=== PATIENT | male | born 1950 | race Caucasian/White ===

== ENCOUNTER 2017-12-13 15:28 | Observation (INO) | payer MEDICARE ==
[2017-12-13] MEDS ORDERED: hydrALAZINE 20 MG/ML VIAL ONE (15:51)
[2017-12-13 17:36] VITALS: BMI 24.9
[2017-12-13] MEDS ORDERED: Ondansetron HCl/PF 4 MG/2 ML Vial IVP PRN (20:45)
[2017-12-13] MEDS ORDERED: hydrALAZINE 20 MG/ML VIAL SLOW IVP PRN (20:45)
[2017-12-13] MEDS ORDERED: Labetalol HCl 100 MG/20 ML VIAL SLOW IVP PRN (20:45)
[2017-12-13] MEDS ORDERED: Acetaminophen 500 MG TAB PO PRN (20:45)
[2017-12-13] MEDS ORDERED: Ondansetron ODT 4 MG TAB PO PRN (20:45)
[2017-12-13] MEDS ORDERED: diphenhydrAMINE 25 MG CAP PO PRN (20:45)
[2017-12-13] MEDS ORDERED: Atorvastatin Calcium 40 MG TAB PO SCH (21:00)
[2017-12-13] MEDS: Famotidine 20 MG TAB PO SCH (22:01)
[2017-12-14 04:51] LABS: Anion Gap 12 mmol/L (10-20); BUN (Urea Nitrogen) 12 mg/dL (8.4-25.7); Calc. Creatinine Clearance 97 mL/min (70-130); Calcium 9.5 mg/dL (7.8-10.44); Carbon Dioxide 23 mmol/L (23-31); Chloride 102 mmol/L (98-107); Cholesterol 167 mg/dl (< 200 Desired); Estimated GFR-MDRD Greater than 90; Glucose 89 mg/dL (80-115); HDL Cholesterol 55 mg/dL (>60 Neg Risk); LDL Cholesterol, Calculated 96 mg/dL; Potassium 4.1 mmol/L (3.5-5.1); Sodium 133 mmol/L (136-145); Triglycerides 79 mg/dL (Less than 150)
--- NOTE | 2017-12-14 04:56 | HP ---
DATE OF ADMISSION: 12/13/2017 PRIMARY CARE PROVIDER: Dr. Jair Perez. CHIEF COMPLAINT: Left hand weakness and facial droop. HISTORY OF PRESENT ILLNESS: This is a 67-year-old male who presents to [facility] and transferred from [place] [facility] where patient initially presented with left hand weakness, left facial droop, left hand tingling and some dysarthri a. 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 The patient continued to drop the hands of tools and was unable to hold him in his left hardy d. The patient's son was working with him at that time and noted left facial droop and became concer nirmala for a possible stroke. The patient was evaluated in [place] [facility], undergoing in itial CT imaging, showing lacunar infarcts of the left thalamic region of indeterminate age. The pat ient was also noted with chronic small vessel ischemic changes and cerebral volume loss. The patient 's symptoms resolved rapidly by the time of evaluation in the emergency room. The patient states teofilo t initially began around 11:00 a.m. on 12/13/2017. The patient does admit to taking daily, aspirin 8 1 mg after taking 325 mg for approximately 16 years until 2 years prior to this evaluation. The bhanu ent admits to self discontinuing lisinopril which was prescribed 10 mg daily due to the patient's bel ief that this was causing lower extremity weakness. The patient denies any prior history of similar symptoms, but does state that approximately 4 weeks prior to this evaluation, he noticed visual distu rbance on both eyes, the images in his visual field appeared to have burned edges in the periphery. The patient states this lasted for several minutes, then resolved spontaneously. The patient denies any recent trauma, injury, fever, chills, or exposure history. [facility] use over [facility] years and was recently diagnosed with chronic obstructive pulmonary disease. PAST MEDICAL HISTORY: 1. Chronic obstructive pulmonary disease. 2. Tobacco abuse greater than 50 years. 3. Hypertension, noncompliant with medications. 4. Benign prosthetic hyperplasia. 5. Congenital agenesis of the right kidney. PAST SURGICAL HISTORY: Status post inguinal hernia repair. CURRENT MEDICATIONS: 1. Aspirin 81 mg 1 tab p.o. daily. 2. Lisinopril 10 mg 1 tab p.o. daily. 3. Anoro Ellipta one inhalation daily. ALLERGIES: No known drug allergies. FAMILY HISTORY: No inheritable diseases per patient report. SOCIAL HISTORY: Patient is , accompanied by his spouse in the hospital. Resides in [place], [place]. 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 Smokes up to 1-2 packs of cigarettes greater than 50 years. Alcoh ol use including beer. No illicit drug use. REVIEW OF SYSTEMS: The following complete review of systems was negative, unless otherwise mentioned in the HPI or below: Constitutional: Weight loss or gain, ability to conduct usual activities. Sk in: Rash, itching. Eyes: Double vision, pain. ENT/Mouth: Nose bleeding, neck stiffness, pain, te nderness. Cardiovascular: Palpitations, dyspnea on exertion, orthopnea. Respiratory: Shortness of breath, wheezing, cough, hemoptysis, fever or night sweats. Gastrointestinal: Poor appetite, abdom inal pain, heartburn, nausea, vomiting, constipation, or diarrhea. Genitourinary: Urgency, frequenc y, dysuria, nocturia. Musculoskeletal: Pain, swelling. Neurologic/Psychiatric: Anxiety, depressio n. Allergy/Immunologic: Skin rash, bleeding tendency. PHYSICAL EXAMINATION: VITAL SIGNS: On admission, blood pressure 183/91, pulse 72, respiratory rate 18, temperature 97.4 de grees Fahrenheit, O2 saturation 99% on room air. GENERAL APPEARANCE: This is a 67-year-old male, alert and oriented x3, pleasant, conversan t, in no acute distress. HEENT: Pupils are equal, round, and reactive to light and accommodation. Extraocular muscles are in tact. No scleral icterus, no conjunctival injection. Nares patent. OP is clear. Teeth in poor rep air. NECK: Supple. No cervical adenopathy, no thyromegaly, no carotid bruits, no JVD appreciated. Cervi adilson spine with full active and passive range of motion. No meningeal signs appreciated. CHEST: Diminished breath sounds bilaterally with prolonged expiratory phase and occasional wheeze. CARDIOVASCULAR: S1, S2 with distant heart sounds. No murmur, rub, or gallop appreciated. ABDOMEN: Rounded, soft, nontender, nondistended. Bowel sounds are positive in all four quadrants. There is no hepatosplenomegaly, no abdominal bruits, no rebound or guarding appreciated. EXTREMITIES: Warm and dry with fair turgor. No clubbing, cyanosis, or asymmetric edema appreciated. Pulses palpable distally at the dorsalis pedis, posterior tibial, and popliteal arteries bilaterall y. Capillary refill less than 2 seconds. NEUROLOGIC: Left facial asymmetry noted, mild. Rest of the cranial nerves 2 through 12 are grossly intact. Right hand dominant. No focal extremity weakness appreciated. Patient follows all commands appropriately. Alert and oriented x3. No ataxia. PERTINENT LABORATORY AND X-RAY FINDINGS: Complete metabolic profile within normal limits. CBC withi n normal limits. CT of the brain without contrast dated 12/13/2017, showed lacunar infarction of the left thalamus indeterminate age. Chronic small vessel ischemic changes with associated cerebral vol ume loss. Vascular calcifications in the carotid siphons and distal right vertebral artery. EKG black ed 12/13/2017 by my interpretation, shows sinus mechanism with heart rates in the 60s. Normal R-wave progression noted in the precordial leads. Normal axis. No acute ST-T wave changes appreciated. ASSESSMENT AND PLAN: 1. Transient ischemic attack. The patient will be observed on the Stroke Unit. We will continue Kahubnd stroke protocol. Obtain 2D transthoracic echocardiogram and carotid Doppler study. We will ho ld MRI imaging as this will not change medical therapy or recommendations for management. Continue a spirin 325 mg daily. Check fasting lipid profile in the a.m. 2. Hypertension, labile and uncontrolled. Resume lisinopril 10 mg p.o. daily. Hydralazine and labe talol p.r.n. per stroke protocol. Continue blood pressure monitoring and titrate antihypertensive re gimen on an ongoing basis. 3. Tobacco abuse. We will offer smoking cessation resources prior to discharge. Transdermal nicoti ne 21 mg daily. 4. Chronic obstructive pulmonary disease. No current exacerbation. Continue Anoro Ellipta 1 inhala tion daily. DuoNeb q.4 hours p.r.n. 5. Prophylaxis. Sequential compression devices while in bed. Pepcid 20 mg p.o. b.i.d. 6. Code status is FULL. Surrogate medical decision maker is patient's spouse.
[2017-12-14 04:58] LABS: Band 3 % (5-11); Eosinophils 7 % (0-10); Hemoglobin 15.8 g/dL (14.0-18.0); Lymphocytes 20 % (21-51); MDiff Complete? YES; Mean Corpuscular HGB CONC 34.8 g/dL (32.0-36.0); Mean Corpuscular Hemoglobin 30.3 pg (27.0-31.0); Mean Corpuscular Volume 87.1 fl (80.0-94.0); Mean Platelet Volume 6.8 fL (7.4-10.4); Monocytes 5 % (0-10); Neutrophil 65 % (42-75); Platelet Count 160 thou/uL (130-400); RBC Distribution Width 13.3 % (11.5-14.5); Red Blood Cell (RBC) Count 5.21 mill/uL (4.70-6.10)
[2017-12-14] MEDS: Famotidine 20 MG TAB PO SCH (08:45)
[2017-12-14] MEDS ORDERED: Nicotine 21 MG PATCH TD SCH (09:00)
[2017-12-14] MEDS ORDERED: Lisinopril 10 MG TAB PO SCH (09:00)
[2017-12-14] MEDS ORDERED: Aspirin 325 mg Enteric Coated Tablet PO SCH (09:00)
--- NOTE | 2017-12-14 10:20 | ULT ---
BILATERAL CAROTID DUPLEX ULTRASOUND: HISTORY: TIA. TECHNIQUE: Pelletier-scale, color-flow, and spectral Doppler imaging of the extracranial carotid artery system is per formed bilaterally. FINDINGS: There is plaque formation on either side. The peak systolic velocity in the right ICA measures 77 cm per second with an end-diastolic velocity of 12 cm per second and a systolic ratio of 1.70. The peak systolic velocity in the left ICA measures 111 cm per second with an end-diastolic velocity of 27 cm per second and a systolic ratio of 2.11. Flow in both vertebral arteries remains antegrade. IMPRESSION: No evidence of hemodynamically significant stenosis. POS: [facility]
[2017-12-14] MEDS ORDERED: Metoprolol Tartrate 25 MG TAB PO SCH ×2 (15:00→21:00)
[2017-12-14 15:46] VITALS: BP 142/86; TEMP 97.8
--- NOTE | 2017-12-15 01:43 | DIS ---
DATE OF ADMISSION: 12/13/2017 DATE OF DISCHARGE: 12/14/2017 DISCHARGE DIAGNOSES: 1. Transient ischemic attack, resolved. 2. Hypertension, labile. 3. Hyperlipidemia. 4. Tobacco abuse. 5. Chronic obstructive pulmonary disease. CONSULTATIONS: None. PERTINENT LABORATORY DATA AND X-RAY FINDINGS: Sodium 133, total cholesterol 167, triglycerides 79, H DL 55, LDL 96. CBC within normal limits. CT of the brain without contrast dated 12/13/2017 showed l acunar infarct of the left thalamus indeterminate age. Chronic ischemic white matter changes noted. Carotid Doppler study dated 12/14/2017 showed no evidence of hemodynamically significant stenosis. A 2D transthoracic echocardiogram dated 12/14/2017 pending. HOSPITAL COURSE: Patient was observed on the stroke unit after initially presenting with left hand w eakness and left facial droop. Patient underwent general stroke protocol after concern for transient ischemic attack. Patient was placed on aspirin 325 mg daily, and underwent carotid Doppler study sh owing no evidence of hemodynamically significant stenosis. CT imaging of the brain at the time of ad mission showed lacunar infarct of the left thalamus of indeterminate age. Patient's symptoms had res olved by the time of evaluation in the emergency room, and patient remained clinically stable through out the remainder of the hospital course. Patient was noted with labile hypertension with the additi on of metoprolol 12.5 mg b.i.d. to current regimen of lisinopril 10 mg daily. Patient likely will ne ed additional titration of his antihypertensive regimen on an ongoing basis after discharge. Patient was counseled regarding the need for tobacco cessation and placed on transdermal nicotine. Overall, patient did remain clinically stable throughout the hospital course, tolerating regular oral intake, ambulating without assistance or difficulty. I have examined the patient's at the time of discharge and discussed pertinent laboratory and radiographic findings as well as discharge instructions. Mary queen verbalized understanding and agreement and will discharge home on 12/14/2017. DISCHARGE MEDICATIONS: 1. Enteric-coated aspirin 325 mg p.o. daily. 2. Lipitor 40 mg p.o. at bedtime. 3. Lisinopril 10 mg p.o. daily. 4. Metoprolol 12.5 mg p.o. b.i.d. 5. Nicoderm CQ 21 mg transdermally daily. 6. Anoro Ellipta 62.5 mcg/25 mcg one inhalation daily. FOLLOWUP: Patient will follow up with her primary care provider, Dr. Jair Perez within 7 days of d ischarge. CONDITION ON DISCHARGE: Stable. ACTIVITY: Ad-dede. DIET: Heart healthy. CODE STATUS: FULL. DISPOSITION: Home on 12/14/2017.
== END 2017-12-14 16:55 | disposition home or self-care (01) ==
LOC: ERS 15:28 → 2SE 16:13
PROVIDERS: ADMIT Family Medicine; ATTEND Family Medicine
DX: G45.9 Transient cerebral ischemic attack, unspecified (principal); I10 Essential (primary) hypertension; E78.5 Hyperlipidemia, unspecified; F17.210 Nicotine dependence, cigarettes, uncomplicated; J44.9 Chronic obstructive pulmonary disease, unspecified; Q60.0 Renal agenesis, unilateral; Z79.82 Long term (current) use of aspirin; Z79.899 Other long term (current) drug therapy
CPT/HCPCS: 80048; 80061; 85007; 85027; 93306; 93880; 94640 ×2; 96374; 99285; G0378; 36415; J0360; J7620

== ENCOUNTER 2018-02-21 11:33 | Inpatient (IN) | payer MEDICARE ==
[2018-02-21 12:22] LABS: #Eosinphils 0.3 thou/uL (0.0-0.7); #Lymphocytes 1.6 thou/uL (1.20-3.40); #Monocytes 0.5 thou/uL (0.11-0.59); #Neutrophils 3.8 thou/uL (1.40-6.50); %Basophils 0.5 % (0.0-1.0); %Eosinophils 5.6 % (0.0-10.0); %Lymphocytes 25.5 % (21.0-51.0); %Monocytes 7.1 % (0.0-10.0); %Neutrophils 61.3 % (42.0-75.0); Mean Corpuscular HGB CONC 34.4 g/dL (32.0-36.0); Mean Corpuscular Hemoglobin 30.2 pg (27.0-31.0); Mean Corpuscular Volume 87.6 fL (78.0-98.0); Mean Platelet Volume 7.5 fL (7.4-10.4); Platelet Count 162 thou/uL (130-400); RBC Distribution Width 13.4 % (11.5-14.5); Red Blood Cell (RBC) Count 4.64 mill/uL (4.70-6.10); White Blood Cell (WBC) Count 6.3 thou/uL (4.8-10.8)
[2018-02-21 12:46] LABS: ALT (SGPT) 19 U/L (8-55); AST (SGOT) 16 U/L (5-34); Albumin 3.7 g/dL (3.4-4.8); Alkaline Phosphatase 125 U/L (40-150); Anion Gap 11 mmol/L (10-20); BUN (Urea Nitrogen) 13 mg/dL (8.4-25.7); Bilirubin, Total 0.5 mg/dL (0.2-1.2); CK (CPK) 76 U/L (30-200); Calc. Creatinine Clearance 0 mL/min (70-130); Calcium 9.5 mg/dL (7.8-10.44); Carbon Dioxide 23 mmol/L (23-31); Chloride 102 mmol/L (98-107); Estimated GFR-MDRD 77; Glucose 83 mg/dL (80-115); Potassium 4.4 mmol/L (3.5-5.1); Protein, Total 6.7 g/dL (5.8-8.1); Sodium 132 mmol/L (136-145)
[2018-02-21 12:49] LABS: CKMB 1.8 ng/mL (0-6.6); Troponin I Less than 0.010 ng/mL (< 0.028)
--- NOTE | 2018-02-21 13:05 | RAD ---
SINGLE VIEW OF THE CHEST: COMPARISON: 06/28/15. HISTORY: Left-sided facial drooping since yesterday. Slurred speech. FINDINGS: Single view of the chest shows a normal sized cardiomediastinal silhouette. There is no evidence of c onsolidation, mass, or pleural effusion. The bones are unremarkable. IMPRESSION: No evidence of acute cardiopulmonary disease. POS: [facility]
--- NOTE | 2018-02-21 13:51 | CT ---
CT BRAIN NONCONTRAST: DATE: 02-21-18 TIME 1:20 P.M. HISTORY: 67-year-old male with dysarthria and left facial droop. FINDINGS: There is no midline shift or any other mass effect. There is no evidence of acute intracranial hemor rhage, large cortical infarct, obstructive hydrocephalus, or extraaxial fluid collection. The calvar ium is intact. There is diffuse parenchymal volume loss. There are low attenuation areas in the whi te matter. These are nonspecific, but in a patient of this age, they are probably chronic ischemic w bryan matter changes due to microvascular atherosclerosis. Tiny old lacunar infarction in the left thalamus is unchanged in appearance compared to 12-13-17. Ther e is a tiny lacunar infarction in the contralateral right thalamus which is difficult to identify on the previous CT. It is favored to be old, perhaps having occurred sometime after the previous CT. IMPRESSION: 1) No acute intracranial hemorrhage or mass effect. 2) Involutional changes and chronic ischemic white matter changes. 3) Tiny lacunar infarction in the right thalamus of indeterminate age. 4) Tiny old lacunar infarction in the left thalamus. antony POS: [facility]
[2018-02-21] MEDS ORDERED: Bisacodyl 5 MG TAB PO PRN (14:58)
[2018-02-21] MEDS ORDERED: Acetaminophen 650 MG Suppository PR PRN (14:58)
[2018-02-21] MEDS ORDERED: Acetaminophen 325 MG TAB PO PRN (14:58)
--- NOTE | 2018-02-21 15:45 | HP ---
PRIMARY CARE PROVIDER: Dr. Jair Perez. CHIEF COMPLAINT: Facial droop. HISTORY OF PRESENT ILLNESS: Mr. Hameed is a pleasant 67-year-old gentleman who was seen at [facility] on 02/21/2018. Mr. Hameed was admitted to [facility] in 12/2017 for stroke-like symptoms. At that time, he had carotid Dopplers, which did not show any evidence of hemodynamically significan t stenosis. He also had 2D echocardiogram, which showed left ventricular ejection fraction of 50%-55 %. CT scan of the brain at that time showed lacunar infarction in the left thalamus of indeterminate age. Since that hospitalization, Mr. Hameed has been referred to Dr. Arroyo for cardiac workup. He had t he appointment yesterday. Yesterday morning, his noticed that he had left facial droop and slur red speech. He reports that the droop was worse when he was walking. He continued to have the sympt oms yesterday. He was seen in Cardiology Clinic. There, he was recommended a stress test and other tests as outpatient. He went home, but continued to have facial droop and slurred speech. His ran into his primary care provider. He inquired how the patient was doing and when he found out that patient was having slurred speech and facial droop, he advised them to go to the emergency room. REVIEW OF SYSTEMS: All other systems reviewed and found to be negative. PAST MEDICAL HISTORY: Chronic obstructive pulmonary disease, hypertension, benign prostate hyperplas ia, congenital agenesis of the right kidney, tobacco abuse. PAST SURGICAL HISTORY: Inguinal hernia repair. FAMILY HISTORY: No family history of premature coronary artery disease. SOCIAL HISTORY: Patient smokes 1 pack of cigarettes a day. He drinks alcohol on a daily basis. He denies any recreational drug use. ALLERGIES: No known drug allergies. CURRENT MEDICATIONS: Aspirin 81 mg daily, lisinopril 10 mg daily, Anoro Ellipta daily, Lipitor 20 mg daily and metoprolol succinate 50 mg daily. PHYSICAL EXAMINATION: GENERAL: On examination, Mr. Hameed is awake and alert, not in acute distress. VITAL SIGNS: Blood pressure is 170/81, pulse 54, respiratory rate 18, and oxygen saturation 96% on r oom air. He is afebrile. EYES: No scleral icterus. No conjunctival pallor. ENT: Moist mucosal membranes, no oropharyngeal erythema or exudate. NECK: Supple, nontender, trachea is midline. RESPIRATORY: Accessory muscles of breathing are not active. Chest wall movements are symmetric bila terally. LUNGS: Clear to auscultation without wheeze, rhonchi or crepitations. CARDIOVASCULAR: S1 and S2 are heard, regular. Peripheral pulses are palpable. No carotid bruit, no pericardial rub. ABDOMEN: Soft, nontender, bowel sounds heard, no hepatomegaly, no splenomegaly. NEUROLOGIC: Patient has left facial droop. Speech is slightly slurred. Otherwise, cranial nerves I I-XII intact. No focal motor or sensory deficits. Deep tendon reflexes 2+, plantar is downgoing charity aterally. SKIN: No rashes or subcutaneous nodules. LYMPHATIC: No cervical lymphadenopathy. PSYCHIATRIC: Normal mood, normal affect, patient is oriented to person, place, and time. IMAGING DATA AND LABORATORY DATA: Mr. Hameed's labs and investigations were reviewed. I reviewed his electrocardiogram, which shows sinus bradycardia, no ST changes to suggest an acute coronary syn drome. I also reviewed his chest x-ray, which does not show any pulmonary infiltrates. He also had noncontrast CT scan of the brain, which did not show any acute intracranial hemorrhage or mass effect . He had tiny lacunar infarction in the right thalamus of indeterminate age. He has an unremarkable CBC, decreased sodium of 132, otherwise unremarkable comprehensive metabolic profile and normal trop onin I. ASSESSMENT AND PLAN: Mr. Hameed is a pleasant 67-year-old gentleman who was seen at [facility] on 02/21/2018. His problem list includes: 1. Facial droop: Etiology is unclear. He will be admitted to the hospital for further workup inclu ding MRI of the brain. Neurology Service will be consulted for opinion and help with management. We will continue him on aspirin and statin. 2. Hyponatremia: Mild, likely asymptomatic. 3. Chronic obstructive pulmonary disease: Stable, continue home medications. 4. Dyslipidemia: Continue statin. Many thanks for allowing me to participate in your patient's care. Please feel free to contact me wi th any questions or concerns. LEVEL OF RISK: High. LEVEL OF COMPLEXITY: High.
[2018-02-21 17:00] VITALS: BMI 24.3
[2018-02-21] MEDS: Nicotine 21 MG PATCH TD SCH (17:38)
[2018-02-21] MEDS: Atorvastatin Calcium 20 MG TAB PO SCH (20:58)
[2018-02-21] MEDS ORDERED: Atorvastatin Calcium 40 MG TAB PO SCH (21:00)
[2018-02-22] MEDS ORDERED: Aspirin 81 mg Enteric Coated Tablet PO SCH (09:00)
[2018-02-22] MEDS ORDERED: Regadenoson 0.4 MG/5 ML SYRINGE ONE (09:38)
--- NOTE | 2018-02-22 10:06 | MRI ---
NONCONTRAST ENHANCED MRI BRAIN: History: Dysarthria. Technique: Noncontrast enhanced MRI images of the brain obtained. FINDINGS: Images demonstrate some deep white matter ischemic changes. There is a small area of diffusion restriction seen in the right periventricular white matter of the posterior frontal lobe seen on FLAIR and diffusion weighted image 18. This is compatible with a small area of acute stroke. The rest of the brain demonstrates no evidence of acute strokes or masses. Normal flow voids seen in the major intracranial vessels. IMPRESSION: 1. Small right periventricular posterior frontal low area of acute stroke. POS: [facility]
--- NOTE | 2018-02-22 12:29 | PDOC.PN ---
- Subjective Encounter Start Date: 02/22/18 Encounter Start Time: 09:00 Subjective: still has facial weakness and slurring of speech -: says he is not very steady on his feet still -: no chest pain or sob or palp or fever - Objective MAR Reviewed: Yes Vital Signs & Weight: Vital Signs (12 hours) Temp Pulse Resp BP Pulse Ox 02/22/18 09:05 97.6 F 61 16 151/94 H 61 L 02/22/18 04:00 98.0 F 57 L 16 188/82 H 93 L Weight Weight 169 lb 1.513 oz I&O: 02/21/18 02/22/18 02/23/18 06:59 06:59 06:59 Intake Total 460 Balance 460 Result Diagrams: 02/21/18 12:06 02/21/18 12:06 Phys Exam - Physical Examination HEENT: PERRLA, moist MMs Neck: no JVD, supple Respiratory: no wheezing, no rales Cardiovascular: RRR, no significant murmur Gastrointestinal: soft, non-tender, positive bowel sounds Musculoskeletal: no edema, pulses present Neurological: moves all 4 limbs 7th nr palsy Psychiatric: normal affect, A&O x 3 Dx/Plan (1) Acute CVA (cerebrovascular accident) Code(s): I63.9 - CEREBRAL INFARCTION, UNSPECIFIED Status: Acute (2) HTN (hypertension) Code(s): I10 - ESSENTIAL (PRIMARY) HYPERTENSION Status: Chronic Qualifiers: Hypertension type: essential hypertension Qualified Code(s): I10 - Essential (primary) hypertension (3) COPD (chronic obstructive pulmonary disease) Status: Chronic Qualifiers: COPD type: chronic bronchitis (4) Dyslipidemia Code(s): E78.5 - HYPERLIPIDEMIA, UNSPECIFIED Status: Chronic (5) BPH (benign prostatic hyperplasia) Code(s): N40.0 - BENIGN PROSTATIC HYPERPLASIA WITHOUT LOWER URINRY TRACT SYMP Status: Chronic Qualifiers: Lower urinary tract symptom presence: symptoms absent Qualified Code(s): N40.0 - Benign prostatic hyperplasia without lower urinary tract symptoms - Plan MRI confirms acute cva -: further cardiac w/u 5-6 weeks later, await stress test results -: will need rehab eval -: is on asp, lipitor -: d/w patient and at bedside * . Review of Systems - Medications/Allergies Allergies/Adverse Reactions: Allergies Allergy/AdvReac Type Severity Reaction Status Date / Time No Known Drug Allergies Allergy Verified 12/13/17 21:53 Medications: Current Medications Acetaminophen (Tylenol) 650 mg PO Q4H PRN PRN Reason: Headache/Fever or Pain Acetaminophen (Tylenol) 650 mg [place] Q4H PRN PRN Reason: Headache/Fever or Pain Albuterol/Ipratropium (Duoneb) 3 ml NEB [id number] [facility] Aspirin (Ecotrin) 81 mg PO DAILY [facility] Atorvastatin Calcium (Lipitor) 20 mg PO HS [facility] Last Admin: 02/21/18 20:58 Dose: 20 mg Bisacodyl (Dulcolax) 10 mg PO DAILYPRN PRN PRN Reason: Constipation Enoxaparin Sodium (Lovenox) 40 mg SC 0900 [facility] Lisinopril (Zestril) 10 mg PO DAILY [facility] Metoprolol Tartrate (Lopressor) 12.5 mg PO BID [facility] Nicotine (Nicoderm Patch) 21 mg TD Q24HR [facility] Last Admin: 02/21/18 17:38 Dose: 21 mg Sodium Chloride (Flush - Normal Saline) 10 ml IVF PRN PRN PRN Reason: Saline Flush
[2018-02-22] MEDS: Metoprolol Tartrate 25 MG TAB PO SCH ×2 (15:00→21:17)
[2018-02-22] MEDS: Lisinopril 10 MG TAB PO SCH (15:00)
--- NOTE | 2018-02-22 15:13 | NM ---
CARDIAC SPECT: CLINICAL HISTORY: 67-year-old male with chest pain, stroke, COPD, and hypertension. Smoker. TECHNIQUE: A myocardial perfusion scan was performed using the single isotope one day protocol with technetium-9 9m sestamibi. 9 mCi were injected intravenously for the rest exam followed by 27 mCi for the stress e xam. Pharmacologic stress with Lexiscan was monitored and interpreted by Braxton Tristan NP. FINDINGS: There is a fixed defect in the inferior wall. No reversible defects are seen. GATED SPECT LVEF: 48%. WALL MOTION EXAM: Mild global hypokinesis. IMPRESSION: No evidence of reversible ischemia. POS: [facility]
[2018-02-22] MEDS: Enoxaparin Sodium 40 MG/0.4 ML SYRINGE SC SCH (16:23)
[2018-02-22] MEDS: Nicotine 21 MG PATCH TD SCH (16:24)
[2018-02-22] MEDS: Atorvastatin Calcium 20 MG TAB PO SCH (21:17)
--- NOTE | 2018-02-22 23:48 | CON ---
DATE OF CONSULTATION: 02/22/2018 REFERRING PROVIDER: Dr. Flaquita Fernandez. REASON FOR CONSULTATION: Left facial droop and left lower extremity weakness. HISTORY OF PRESENT ILLNESS: Mr. Hameed is a pleasant 67-year-old male who has been cons ulted for evaluation of left facial droop and left lower extremity weakness. History is obtained fro m who was present at bedside. reports that patient was admitted to [facility] in December of this year with episode of TIA. At that time, he had carotid Dopplers and echocardiogram done , which were unremarkable. He was discharged home on a full dose aspirin on Tuesday, she started noti cing the patient was having left facial droop. She also noticed his speech was being slurred. She a lso noticed that his gait was somewhat wobbly and appeared to be weak on his left side. They had con tacted their primary care physician on yesterday who recommended for him to go to the emergency room for further evaluation. He reports that he continues to have left facial droop and slurred speech. He still has some weakness in his left lower extremity. He denies any headache, vision changes, ches t pain, palpitation, difficulty with bowel or bladder function. 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 PAST SURGICAL HISTORY: Significant for inguinal hernia repair. FAMILY HISTORY: Noncontributory. SOCIAL HISTORY: He smokes 1 pack of cigarettes on a daily basis. He denies alcohol use, denies recr eational drug use. CURRENT MEDICATIONS: Please review MAR. ALLERGIES: No known drug allergies. REVIEW OF SYSTEMS: As mentioned above in the HPI, otherwise negative. PHYSICAL EXAMINATION: VITAL SIGNS: Blood pressure 173/88, pulse of 53, temperature of 97.8, respirations are 20, O2 sats o f 98% on room air. GENERAL: A well-developed, well-nourished male, in no apparent distress. RESPIRATORY: Clear to auscultation bilaterally. CARDIOVASCULAR: Regular rate and rhythm. NEUROLOGIC: Mental status: The patient is awake, alert, oriented x3. Speech and language: Mildly dysarthric speech. Cranial nerves: Pupils are 3 mm and reactive. Visual conner are intact. Extrao cular muscles are intact. No nystagmus noted. There is a mild left nasolabial fold loss noted. Mayank gonsales and uvula are midline. Motor exam showed normal tone and bulk with a 5/5 strength in both upper and lower extremities. Sensory: Sensation is intact and symmetric. Deep tendon reflexes 2+ reflexe s in both upper and lower extremities. Babinski: Plantar responses flexion bilaterally. Coordinati on intact to ezktor-[id number]-hhjiis and finger tapping bilaterally. LABORATORY DATA: Reviewed, which included CBC, CMP, which is significant for sodium of 132, otherwis e unremarkable. IMAGING STUDIES: MRI brain without contrast was reviewed, which showed acute right periventricular p osterior frontal ischemic infarct. IMPRESSION: 1. Acute ischemic infarct involving the left posterior frontal region. 2. Malignant hypertension. 3. Tobacco abuse. ASSESSMENT AND PLAN: Mr. Hameed is a pleasant 67-year-old male who presented with the l eft facial droop and left lower extremity weakness. He is found to have acute right posterior fronta l ischemic infarct. This is likely secondary to underlying poorly controlled risk factors. I have d iscussed with the patient and explained that he needs to control his blood pressure, cholesterol, and quit smoking. He was taking aspirin 325 mg before this admission and thus I will discontinue aspiri n and start him on Plavix 75 mg daily for secondary stroke prevention. Patient may need outpatient s peech therapy and PT. Once he is medically stable, he is okay to be discharged to home with outpatie nt appointment with one of the neurologists in group.
[2018-02-23 07:40] VITALS: BP 181/83; TEMP 97.5
[2018-02-23] MEDS: Metoprolol Tartrate 25 MG TAB PO SCH (08:58)
[2018-02-23] MEDS: Lisinopril 10 MG TAB PO SCH (08:58)
[2018-02-23] MEDS: Enoxaparin Sodium 40 MG/0.4 ML SYRINGE SC SCH (08:59)
[2018-02-23] MEDS: Nicotine 21 MG PATCH TD SCH (08:59)
[2018-02-23] MEDS ORDERED: Clopidogrel Bisulfate 75 MG TAB PO SCH (09:00)
--- NOTE | 2018-02-23 10:25 | PDOC.PN ---
- Subjective Encounter Start Date: 02/23/18 Encounter Start Time: 07:00 Subjective: no new complaints, is amb in hallway -: no sob - Objective MAR Reviewed: Yes Vital Signs & Weight: Vital Signs (12 hours) Temp Pulse Resp BP Pulse Ox 02/23/18 07:52 97.5 F L 67 16 02/23/18 07:40 97.5 F L 67 16 181/83 H 97 02/23/18 06:36 70 12 02/23/18 04:00 98.3 F 79 18 156/90 H 96 02/23/18 00:50 58 L 18 99 02/23/18 00:00 98.5 F 55 L 18 155/81 H 99 Weight Weight 169 lb 1.513 oz I&O: 02/22/18 02/23/18 02/24/18 06:59 06:59 06:59 Intake Total 460 Balance 460 Result Diagrams: 02/21/18 12:06 02/21/18 12:06 Phys Exam - Physical Examination HEENT: PERRLA, moist MMs Neck: no JVD, supple Respiratory: no wheezing, no rales Cardiovascular: RRR, no significant murmur Gastrointestinal: soft, non-tender, positive bowel sounds Musculoskeletal: no edema, pulses present 7th nerve palsy Psychiatric: normal affect, A&O x 3 Dx/Plan (1) Acute CVA (cerebrovascular accident) Code(s): I63.9 - CEREBRAL INFARCTION, UNSPECIFIED Status: Acute (2) HTN (hypertension) Code(s): I10 - ESSENTIAL (PRIMARY) HYPERTENSION Status: Chronic Qualifiers: Hypertension type: essential hypertension Qualified Code(s): I10 - Essential (primary) hypertension (3) COPD (chronic obstructive pulmonary disease) Status: Chronic Qualifiers: COPD type: chronic bronchitis (4) Dyslipidemia Code(s): E78.5 - HYPERLIPIDEMIA, UNSPECIFIED Status: Chronic (5) BPH (benign prostatic hyperplasia) Code(s): N40.0 - BENIGN PROSTATIC HYPERPLASIA WITHOUT LOWER URINRY TRACT SYMP Status: Chronic Qualifiers: Lower urinary tract symptom presence: symptoms absent Qualified Code(s): N40.0 - Benign prostatic hyperplasia without lower urinary tract symptoms - Plan hemo/neurostable -: outpt rehab -: dc pt home * .
--- NOTE | 2018-02-23 14:26 | DIS ---
DATE OF ADMISSION: 02/21/2018 DATE OF DISCHARGE: 02/23/2018 DISCHARGE DISPOSITION: To home. PRIMARY DISCHARGE DIAGNOSIS: Acute cerebrovascular accident. SECONDARY DISCHARGE DIAGNOSES: Hypertension, chronic obstructive pulmonary disease, benign prostatic hypertrophy, dyslipidemia. PROCEDURES DONE DURING HOSPITALIZATION: CT brain without contrast done on admission showed tiny lacu priscilla infarct in right thalamus of indeterminate age. Tiny old lacunar infarct in the left thalamus as well. MRI brain done showed small right periventricular posterior frontal lobe area of acute stroke . Chest x-ray done showed no acute cardiopulmonary abnormalities. Nuclear stress test showed an EF of 48%, mild global hypokinesis, no evidence of reversible ischemia. There was a fixed defect seen i n the inferior wall. H and H 14 and 40, platelet count 162,000, MCV is 87. Troponin I x1 was negati ve. CK-MB 1.8. DISCHARGE MEDICATIONS: Lisinopril 10 mg p.o. daily, Anoro Ellipta inhaler daily, albuterol inhaler q .6 hourly p.r.n., Lipitor 40 mg p.o. at bedtime, Plavix 75 mg p.o. daily, DuoNeb q.6 hourly p.r.n., L opressor 12.5 mg p.o. twice daily, NicoDerm transdermal patch 21 mg daily. ALLERGIES: No known drug allergies. INPATIENT CONSULTS: Dr. Sera Anthony for Neurology. DISCHARGE PLAN: The patient to follow up with Dr. Arroyo in 4-6 weeks, Dr. Anthony in 4 weeks and primary care physician in 1 week. BRIEF COURSE DURING HOSPITALIZATION: The patient initially came to ER with complaints of facial droo p. He was essentially admitted to stroke unit to rule out CVA. Initial CT brain done showed a small lacunar infarct in the thalamic area. Subsequent MRI done confirmed acute CVA in the frontal area o n the right side in the periventricular posterior frontal area. The patient's seventh nerve palsy is slowly resolving. He has been able to ambulate in the hallway. The patient has had occasional feel ing of drifting when he is ambulating. In view of this, outpatient rehab has been arranged. [facility] for a stress test on the day of arrival here and hence was done during h is stay, which showed no reversible ischemia. The patient has further workup planned in Dr. Arroyo[facility] of [facility] for possible aneurysm and subsequent studies for the same. He is hemodynamically stable. He lee s been counseled with regards to smoking cessation and nicotine transdermal patch has been prescribed . He has remained hemodynamically and neurologically stable. He has been cleared by Neurology for d ischarge. Please see a [id number] documentation on [facility] for the day of discharge.
--- NOTE | 2018-02-25 11:20 | EKG ---
Test Reason : Blood Pressure : / mmHG Vent. Rate : 051 BPM Atrial Rate : 051 BPM P-R Int : 132 ms QRS Dur : 092 ms QT Int : 468 ms P-R-T Axes : 075 059 019 degrees QTc Int : 431 ms Sinus bradycardia Cannot rule out Inferior infarct , age undetermined Abnormal ECG Confirmed by KARLA FLOR DO ([id number]), editorial writer GRADY PRETTY ([id number]) on 02/25/2018 11:19:42 AM Referred By: Confirmed By:KARLA FLOR DO
== END 2018-02-23 09:32 | disposition home or self-care (01) | DRG 65 ==
LOC: ERS 11:33 → 2SE 15:44 → ERS 16:24 → OBSVTOIN 02-22 11:50
PROVIDERS: ADMIT Internal Medicine; ATTEND Internal Medicine
DX: I63.9 Cerebral infarction, unspecified (principal); Q60.0 Renal agenesis, unilateral; E87.1 Hypo-osmolality and hyponatremia; I10 Essential (primary) hypertension; J44.9 Chronic obstructive pulmonary disease, unspecified; E78.5 Hyperlipidemia, unspecified; N40.0 Benign prostatic hyperplasia without lower urinary tract symptoms; R47.81 Slurred speech; Z86.73 Personal history of transient ischemic attack (TIA), and cerebral infarction without residual deficits; F17.210 Nicotine dependence, cigarettes, uncomplicated; G51.0 Bell's palsy; G83.14 Monoplegia of lower limb affecting left nondominant side
CPT/HCPCS: 36416; 70450; 70551; 71045; 78452; 80053; 82553; 84484; 85025; 93005; 93017; A9500; G8978-GP-CI; G8979-GP-CI; G8980-GP-CI; G8987-GO-CI; G8988-GO-CI; G8989-GO-CI; J1650; J2785; J7620